=== PATIENT | female | born 1975 | race Caucasian/White ===

== ENCOUNTER → 2016-05-14 | Outpatient (CLI) | payer BC, OTHER ==
--- NOTE | 2016-05-14 12:14 | REP ---
Clinical: Abnormal uterine bleeding . Technique: Transabdominal pelvic ultrasound followed by transvaginal examination for better evaluation of the endometrium and adnexa with color Doppler evaluation of the ovaries. Findings: Bladder is unremarkable and measures 7.0 x 5.6 x 6.4 cm . Normal anteverted uterus measures 8.6 x 3.9 x 5.1 cm . The endometrial complex measures 3.6 mm thickness. No significant discrete uterine or endometrial abnormalities are appreciated. Few small Nabothian cysts are identified in the lower uterine segment. Myometrial calcification is likely chronic and nonsignificant. Trace endocervical fluid. Bilateral ovaries are normal in appearance and vascularity without evidence for torsion. Right ovary measures 5.2 x 2.2 x 3.2 cm with 3.1 cm cyst ; R I = 0.64. Left ovary measures 2.9 x 1.0 x 1.4 cm ; R I = unobtainable . No pelvic fluid or adnexal mass lesion. Impression: 1. Relatively normal anteverted uterus with subtle chronic changes including small myometrial calcification, Nabothian cysts, and sliver of endocervical fluid. No discrete uterine abnormality otherwise noted. 2. 3.1 cm right ovarian cyst likely physiologic. Consider follow-up examination in 4-6 weeks to evaluate for resolution. Signed by Denis Holbrook MD 05/14/2016 12:05 P
== END ==
LOC: M SMT 11:01
PROVIDERS: ATTEND Advanced Practice Midwife
DX: N92.6 Irregular menstruation, unspecified (principal); N85.8 Other specified noninflammatory disorders of uterus

== ENCOUNTER → 2017-08-14 | Outpatient (REF) | payer BC, OTHER | LOC: M LAB REF 18:17 | DX: Z12.4 Encounter for screening for malignant neoplasm of cervix (principal); R87.618 Other abnormal cytological findings on specimens from cervix uteri | CPT/HCPCS: G0123 ==

== ENCOUNTER → 2017-09-09 | Outpatient (CLI) | payer BC | LOC: M WHC 06:42 | DX: Z12.31 Encounter for screening mammogram for malignant neoplasm of breast (principal) ==

== ENCOUNTER → 2018-06-08 | Outpatient (CLI) | payer BC, OTHER ==
[2018-06-08 17:28] LABS: FREE T4 0.99 NG/DL (0.76-1.46); THYROID STIMULATING HORMONE 0.716 uIU/ML (0.358-3.740)
[2018-06-08 17:30] LABS: PROLACTIN 10.4 NG/ML
[2018-06-08 17:56] LABS: HEMATOCRIT 46.8 % (36.0-47.0); HEMOGLOBIN 14.5 g/dl (12.0-15.5); MEAN CORPUSCULAR HEMOGLOBIN 27.7 pg (27.0-33.0); MEAN CORPUSCULAR VOLUME 89.3 fl (80.0-96.0); PLATELET COUNT, AUTOMATED 255 10^3/uL (150-450); RED BLOOD COUNT 5.24 10^6/uL (4.00-5.40); WHITE BLOOD COUNT 5.7 10^3/uL (4.0-10.0)
[2018-06-12 08:10] LABS: DEHYDROEPIANDROSTERONE UNCONJ 117 ng/dL (31-701); TESTOSTERONE FREE (DIRECT) 0.7 pg/mL (0.0-4.2)
== END ==
LOC: M SMT 14:47
PROVIDERS: ATTEND Advanced Practice Midwife
DX: L63.9 Alopecia areata, unspecified (principal)

== ENCOUNTER → 2018-09-10 | Outpatient (CLI) | payer BC ==
--- NOTE | 2018-09-10 09:04 | REPMRS ---
Patient History The patient states she had a clinical breast exam in 08/2018. No known family history of cancer. Taking unspecified hormones for 6 years. Digital Woman Screen Mammo: September 10, 2018 - Exam #: [id number] Bilateral CC and MLO view(s) were taken. Technologist: Lashonda Boss, Technologist Prior study comparison: September 09, 2017, bilateral digital woman screen mammo performed at [facility]. November 05, 2013, digital woman screen mammo performed at [facility]. FINDINGS: The breast tissue is heterogeneously dense. This may lower the sensitivity of mammography. There are two nodular opacities seen on 3-D tomography imaging in the upper outer quadrant of the right breast which merit further evaluation. These appear to be well circumscribed and measures 16 and 8 mm in greatest diameter respectively. There is a moderate amount of heterogeneously dense fibroglandular tissue which is fairly symmetric. There is no other interval development of dominant mass, architectural distortion, or clustered microcalcification typical of malignancy. There has been no other change in the appearance of the mammogram from the prior studies. 3-D tomosynthesis shows no additional findings. Assessment: BI-RADS/ACR category 0 mammogram, Incomplete: Need additional imaging evaluation and/or prior mammograms for comparison. Recommendation Ultrasound and special view mammogram of the right breast. This patient's Lifetime Breast Cancer RIsk is estimated at 9.8 %. This mammogram was interpreted with the aid of an FDA-approved computer-aided dectection system. Electronically Signed By: Chang Meza MD 09/10/18 0903
== END ==
LOC: M WHC 06:32
PROVIDERS: ATTEND Advanced Practice Midwife
DX: Z12.31 Encounter for screening mammogram for malignant neoplasm of breast (principal); R92.8 Other abnormal and inconclusive findings on diagnostic imaging of breast

== ENCOUNTER → 2018-09-15 | Outpatient (CLI) | payer BC ==
--- NOTE | 2018-09-16 11:51 | REP ---
ULTRASOUND RIGHT BREAST: Ultrasound right breast performed and correlated with a recent mammogram 09/10/2018, which showed two oval well-circumscribed nodules at 12-o'clock position in the right breast. One was slightly greater than 1 cm in diameter and one slightly less than 1 cm in diameter. Ultrasound at the 10-o'clock to 12-o'clock region, demonstrates two adjacent anechoic benign cysts measuring 1.2 x 1.2 x 1.0 cm and 7 x 6 x 6 mm. Corresponding to the mammographic abnormality. These are benign. IMPRESSION: ACR 2 benign. The two adjacent well-circumscribed nodules in the upper right breast correspond to simple cysts by ultrasound and are benign. Recommend followup mammogram in 1 year. Electronically Signed by Jeff Love MD 09/16/2018 04:37 P
== END ==
LOC: M RAD 16:48
PROVIDERS: ATTEND Advanced Practice Midwife
DX: N60.01 Solitary cyst of right breast (principal)

== ENCOUNTER → 2018-10-21 | Outpatient (REF) | payer OTHER | LOC: M LAB REF 18:02 | PROVIDERS: ATTEND Advanced Practice Midwife | DX: Z12.4 Encounter for screening for malignant neoplasm of cervix (principal) ==

== ENCOUNTER → 2019-01-28 | Outpatient (CLI) | payer BC, OTHER ==
[2019-01-28 13:30] LABS: HEMATOCRIT 50.7 % (36.0-47.0); HEMOGLOBIN 15.9 g/dl (12.0-15.5); MEAN CORPUSCULAR HEMOGLOBIN 28.6 pg (27.0-33.0); MEAN CORPUSCULAR HGB CONC 31.4 g/dl (32.0-36.5); MEAN CORPUSCULAR VOLUME 91.2 fl (80.0-96.0); PLATELET COUNT, AUTOMATED 299 10^3/uL (150-450); RED BLOOD COUNT 5.56 10^6/uL (4.00-5.40); WHITE BLOOD COUNT 11.3 10^3/uL (4.0-10.0)
[2019-01-28 13:32] LABS: BLOOD UREA NITROGEN 9 MG/DL (7-18); CALCIUM LEVEL 9.1 MG/DL (8.5-10.1); CARBON DIOXIDE LEVEL 28 MEQ/L (21-32); CHLORIDE LEVEL 107 MEQ/L (98-107); CREATININE FOR GFR 0.82 MG/DL (0.55-1.30); GLOMERULAR FILTRATION RATE > 60.0 (>58); GLUCOSE, FASTING 83 MG/DL (70-100); POTASSIUM SERUM 4.4 MEQ/L (3.5-5.1); SODIUM LEVEL 140 MEQ/L (136-145)
== END ==
LOC: M SMT 08:49
PROVIDERS: ATTEND Plastic Surgery Surgery of the Hand
DX: D49.2 Neoplasm of unspecified behavior of bone, soft tissue, and skin (principal)

== ENCOUNTER 2019-02-18 06:06 | Day surgery (SDC) | payer BC, OTHER ==
[~2019-02-18] VITALS: Ht 162.6 cm; Wt 83.6 kg
[~2019-02-18 06:06] MED LIST: CVS-161 PO; LIDOCAINE 1% MDV 20ML VIAL SQ PRN; LR 1,000 ML IV ONE; MIRE1IUD IU; MULTCAP PO; SERT-138 PO; VITA-157 PO; ceFAZolin SOD 1 GM in D5W MINI-BAG PLUS 50 ML IV SCH
[2019-02-18] MEDS ORDERED: dexameTHASONE 4 MG/ML 1ML VIAL (J1100) As Ordered ONE (07:11)
[2019-02-18] MEDS ORDERED: PROPOFOL 200 MG/20 ML VIAL As Ordered ONE ×2 (07:11→08:29)
[2019-02-18] MEDS ORDERED: fentaNYL 250 MCG/5 ML INJECTION (J3010) As Ordered ONE (07:11)
[2019-02-18] MEDS ORDERED: ROCURONIUM BROMIDE 50 MG/5 ML VIAL As Ordered ONE (07:11)
[2019-02-18] MEDS ORDERED: ONDANSETRON 4MG/2ML VIAL (J2405) As Ordered ONE (07:11)
[2019-02-18] MEDS ORDERED: LIDOCAINE 2% INJ 100 MG/5 ML SDV (FOR ANES.) As Ordered ONE (07:11)
[2019-02-18] MEDS ORDERED: MIDAZOLAM INJ 2 MG/2 ML VIAL (J2250) As Ordered ONE (07:11)
[2019-02-18] MEDS ORDERED: LIDOCAINE W/EPINEPHRINE 1% 20ML VIAL As Ordered ONE (07:18)
[2019-02-18] MEDS ORDERED: ACETAMINOPHEN 1000MG 100ML IV BTL (OFIRMEV) (J0131 PER 10MG) As Ordered ONE (07:40)
[2019-02-18] MEDS ORDERED: BACITRACIN PWD 50,000 UNITS VIAL As Ordered ONE (08:04)
[2019-02-18] MEDS ORDERED: ePHEDrine SULFATE 25 MG/5 ML(5MG/ML) SYRINGE As Ordered ONE (08:29)
--- NOTE | 2019-02-18 08:40 | POST-OPPD ---
Postoperative Procedure Note Date Of Procedure: Feb 18, 2019 PREOPERATIVE DIAGNOSIS: Right upper back mass POSTOPERATIVE DIAGNOSIS: same FINDINGS: Right upper back mass 6x4.5 cm. PROCEDURE: Excision right upper back mass SURGEON: Dr Mosher PERSONAL INJURY SPECIALIST: Dr Cintron ANESTHESIA: local with sedation SPECIMENS: Right upper back mass ESTIMATED BLOOD LOSS: 5 cc REPLACED: none DRAINS: 10 mm round drain COMPLICATIONS: none POSTOPERATIVE CONDITION: stable GLORIA MOSHER DO Feb 18, 2019 08:40
[2019-02-18] MEDS ORDERED: TYLETAB14 PO (08:45)
[2019-02-18 09:15] VITALS: BP 144/87
--- NOTE | 2019-02-20 14:27 | RO ---
DATE OF PROCEDURE: 02/18/2019 PREPROCEDURE DIAGNOSIS: Right upper back mass. POSTPROCEDURE DIAGNOSIS: Right upper back mass. PROCEDURE: Excision right upper back mass. SURGEON: Dr. Sriia Guillen HAIR SPRING CUTTER: Dr. Cintron. ANESTHESIA: Local with sedation. SPECIMEN SENT: Right upper back mass. ESTIMATED BLOOD LOSS: 5 mL. FLUID REPLACEMENT: No replacements needed. DRAIN: 10 mm round drain. POSTOP CONDITION: Stable. FINDINGS: Mass right upper back 6 x 4.5 cm in diameter. This is a 43-year-old female who had a slow-growing mass on the right upper back. It is a round and oblong. It is 4.5 x 6 cm palpable. It does not feel fixed. Patient is scheduled to have it excised. Risks, benefits, and alternatives discussed with the patient in detail. She has agreed to proceed. DESCRIPTION OF PROCEDURE: On the day of surgery, informed consent was confirmed. She was brought into the operating room and placed in a semi-lateral position on the left side. Patient positioned herself and slight sedation was given to the patient. She was prepped and draped in the usual sterile fashion. We started our procedure with infiltrating local anesthetic in the area of 1% lidocaine with epinephrine. After the numbing affect of lidocaine was taken placed, the curvilinear incision was made through the most prominent portion of the mass. Sharp dissection was carried out until we identified the lipomatous mass. Then careful dissection was around the mass to get it wall excised in all entirety. Hemostasis obtained using electrocautery. The mass came out as one. The wound was irrigated with bacitracin irrigant solution. Hemostasis was checked and it was okay. No bleeding. Then we made a separate stab incision inferior to the opening and the drain was introduced into the cavity. The wound was closed in layers with interrupted #3-0 Vicryl and #3-0 Monocryl sutures as well as a #4-0 Monocryl suture and drain suture in place as well. Steri-Strips and a pressure dressing were applied. Patient tolerated the procedure well without any difficulty and was transferred to the recovery room in stable condition.
== END 2019-02-18 09:20 | disposition home or self-care (01) ==
LOC: M SDC 06:06
PROVIDERS: ATTEND Plastic Surgery Surgery of the Hand
DX: D17.1 Benign lipomatous neoplasm of skin and subcutaneous tissue of trunk (principal); F41.9 Anxiety disorder, unspecified; F32.9 Major depressive disorder, single episode, unspecified; Z87.891 Personal history of nicotine dependence; Z97.5 Presence of (intrauterine) contraceptive device
CPT/HCPCS: 21931; 81025; 88305; J0131; J0690; J1100; J2250; J2405; J3010

== ENCOUNTER → 2019-09-10 | Outpatient (REF) | payer OTHER ==
[~2019-09-10] MED LIST changes: -LIDOCAINE 1% MDV 20ML VIAL SQ PRN; -LR 1,000 ML IV ONE; +TYLETAB14 PO; -ceFAZolin SOD 1 GM in D5W MINI-BAG PLUS 50 ML IV SCH
[2019-09-10 11:22] LABS: FREE T4 1.11 NG/DL (0.76-1.46); THYROID STIMULATING HORMONE 0.477 uIU/ML (0.358-3.740)
== END ==
LOC: M PLALAB 09:20
PROVIDERS: ATTEND Advanced Practice Midwife
DX: L65.9 Nonscarring hair loss, unspecified (principal)

== ENCOUNTER → 2019-10-26 | Outpatient (CLI) | payer BC ==
--- NOTE | 2019-11-19 06:57 | REPMRS ---
Patient History The patient states she had a clinical breast exam in 08/2019. No known family history of cancer. Took unspecified hormones for 6 years. Digital Woman Screen Mammo: October 26, 2019 - Exam #: [id number] Bilateral CC and MLO view(s) were taken. Technologist: Lashonda Boss, Technologist Prior study comparison: September 10, 2018, bilateral digital woman screen mammo performed at [facility]. September 09, 2017, bilateral digital woman screen mammo performed at [facility]. November 05, 2013, digital woman screen mammo performed at [facility]. FINDINGS: The breast tissue is heterogeneously dense. This may lower the sensitivity of mammography. There is a moderate amount of heterogeneously dense fibroglandular tissue which is fairly symmetric. There is no interval development of dominant mass, architectural distortion, or grouped microcalcification typical of malignancy. There has been no change in the appearance of the mammogram from the prior studies. 3-D tomosynthesis shows no additional findings. Report was delayed due to a malware attack on this facility. Assessment: BI-RADS/ACR category 1 mammogram. Negative Mammogram. Recommendation Routine screening mammogram of both breasts in 1 year (for women over age 40). This patient's Lifetime Breast Cancer RIsk is estimated at 9.7 %. This mammogram was interpreted with the aid of an FDA-approved computer-aided dectection system. Electronically Signed By: Chang Meza MD 11/19/19 0656
== END ==
LOC: M WHC 06:52
PROVIDERS: ATTEND Advanced Practice Midwife
DX: Z12.31 Encounter for screening mammogram for malignant neoplasm of breast (principal)

== ENCOUNTER → 2020-08-11 | Outpatient (REF) | payer BC, OTHER ==
[~2020-08-11] MED LIST changes: -VITA-157 PO; +VITAE40CA PO
[2020-08-11 11:12] LABS: BASO % 0.5 % (0.0-1.0); EOS # 0.1 10^3/uL (0.0-0.5); EOS % 1.5 % (0.0-3.0); HEMATOCRIT 47.2 % (36.0-47.0); HEMOGLOBIN 14.3 g/dl (12.0-15.5); LYMPH # 2.4 10^3/uL (1.5-5.0); LYMPH % 32.4 % (24.0-44.0); MEAN CORPUSCULAR HEMOGLOBIN 26.8 pg (27.0-33.0); MEAN CORPUSCULAR HGB CONC 30.3 g/dl (32.0-36.5); MEAN CORPUSCULAR VOLUME 88.4 fl (80.0-96.0); MONO # 0.7 10^3/uL (0.0-0.8); MONO % 8.6 % (2.0-8.0); NEUTROPHILS # 4.3 10^3/uL (1.5-8.5); NEUTROPHILS % 56.5 % (36.0-66.0); PLATELET COUNT, AUTOMATED 330 10^3/uL (150-450); RED BLOOD COUNT 5.34 10^6/uL (4.00-5.40); WHITE BLOOD COUNT 7.5 10^3/uL (4.0-10.0)
[2020-08-11 11:41] LABS: ALBUMIN 3.6 GM/DL (3.2-5.2); ALT/SGPT 31 U/L (12-78); BILIRUBIN,TOTAL 0.3 MG/DL (0.2-1.0); BLOOD UREA NITROGEN 10 MG/DL (7-18); CALCIUM LEVEL 9.4 MG/DL (8.5-10.1); CARBON DIOXIDE LEVEL 29 MEQ/L (21-32); CHLORIDE LEVEL 112 MEQ/L (98-107); CHOLESTEROL LEVEL 269 MG/DL (<200); CHOLESTEROL RISK RATIO 4.719 (<5); CREATININE FOR GFR 0.94 MG/DL (0.55-1.30); FREE T4 1.01 NG/DL (0.76-1.46); GLOMERULAR FILTRATION RATE > 60.0 (>58); GLUCOSE, FASTING 88 MG/DL (70-100); HDL CHOLESTEROL 57 MG/DL (>40); LDL CHOLESTEROL 194 MG/DL (<100); NON-HDL-C 212 MG/DL; NT-PRO BNP 138 PG/ML (<125); POTASSIUM SERUM 4.4 MEQ/L (3.5-5.1); SODIUM LEVEL 144 MEQ/L (136-145); TOTAL PROTEIN 6.9 GM/DL (6.4-8.2); TRIGLYCERIDES LEVEL 90 MG/DL (<150); TROPONIN I < 0.02 NG/ML (< 0.10)
== END ==
LOC: M PLALAB 09:52
PROVIDERS: ATTEND Family Medicine
DX: Z13.220 Encounter for screening for lipoid disorders (principal); Z13.29 Encounter for screening for other suspected endocrine disorder; Z13.0 Encounter for screening for diseases of the blood and blood-forming organs and certain disorders involving the immune mechanism; I10 Essential (primary) hypertension

== ENCOUNTER → 2020-09-20 | Outpatient (REF) | LOC: M LABSMTC 11:54 | PROVIDERS: ATTEND Pediatrics | DX: Z20.822 Contact with and (suspected) exposure to COVID-19 (principal) ==

== ENCOUNTER → 2020-09-27 | Outpatient (REF) | payer OTHER, BC ==
[2020-09-27 10:32] LABS: BASO # 0.1 10^3/uL (0.0-0.2); BASO % 0.8 % (0.0-1.0); EOS # 0.7 10^3/uL (0.0-0.5); EOS % 7.1 % (0.0-3.0); HEMATOCRIT 44.2 % (36.0-47.0); HEMOGLOBIN 13.6 g/dl (12.0-15.5); LYMPH # 1.9 10^3/uL (1.5-5.0); MEAN CORPUSCULAR HEMOGLOBIN 26.3 pg (27.0-33.0); MEAN CORPUSCULAR HGB CONC 30.8 g/dl (32.0-36.5); MEAN CORPUSCULAR VOLUME 85.3 fl (80.0-96.0); MONO # 1.3 10^3/uL (0.0-0.8); MONO % 13.5 % (2.0-8.0); NEUTROPHILS # 5.4 10^3/uL (1.5-8.5); PLATELET COUNT, AUTOMATED 492 10^3/uL (150-450); RED BLOOD COUNT 5.18 10^6/uL (4.00-5.40); WHITE BLOOD COUNT 9.6 10^3/uL (4.0-10.0)
[2020-09-27 11:14] LABS: ALBUMIN 2.8 GM/DL (3.2-5.2); ALT/SGPT 260 U/L (12-78); BILIRUBIN,TOTAL 0.8 MG/DL (0.2-1.0); BLOOD UREA NITROGEN 8 MG/DL (7-18); CALCIUM LEVEL 8.8 MG/DL (8.5-10.1); CARBON DIOXIDE LEVEL 28 MEQ/L (21-32); CHLORIDE LEVEL 106 MEQ/L (98-107); GLOMERULAR FILTRATION RATE > 60.0 (>58); GLUCOSE, FASTING 102 MG/DL (70-100); SODIUM LEVEL 139 MEQ/L (136-145); TOTAL PROTEIN 6.6 GM/DL (6.4-8.2)
== END ==
LOC: M PLALAB 09:52
PROVIDERS: ATTEND Physician Assistant
DX: I10 Essential (primary) hypertension (principal)

== ENCOUNTER → 2020-10-13 | Outpatient (CLI) | payer OTHER, BC ==
[2020-10-13 10:58] LABS: BASO # 0.1 10^3/uL (0.0-0.2); BASO % 0.7 % (0.0-1.0); EOS # 0.4 10^3/uL (0.0-0.5); HEMATOCRIT 44.7 % (36.0-47.0); HEMOGLOBIN 14.2 g/dl (12.0-15.5); LYMPH # 2.3 10^3/uL (1.5-5.0); LYMPH % 30.9 % (24.0-44.0); MEAN CORPUSCULAR HEMOGLOBIN 26.9 pg (27.0-33.0); MEAN CORPUSCULAR HGB CONC 31.8 g/dl (32.0-36.5); MEAN CORPUSCULAR VOLUME 84.8 fl (80.0-96.0); MONO # 0.7 10^3/uL (0.0-0.8); MONO % 9.3 % (2.0-8.0); NEUTROPHILS % 53.3 % (36.0-66.0); PLATELET COUNT, AUTOMATED 356 10^3/uL (150-450); RED BLOOD COUNT 5.27 10^6/uL (4.00-5.40); WHITE BLOOD COUNT 7.5 10^3/uL (4.0-10.0)
[2020-10-13 11:37] LABS: ALBUMIN 3.5 GM/DL (3.2-5.2); ALT/SGPT 39 U/L (12-78); BILIRUBIN,DIRECT 0.1 MG/DL (0.0-0.2); BILIRUBIN,TOTAL 0.4 MG/DL (0.2-1.0); BLOOD UREA NITROGEN 10 MG/DL (7-18); CALCIUM LEVEL 9.2 MG/DL (8.5-10.1); CARBON DIOXIDE LEVEL 26 MEQ/L (21-32); CHLORIDE LEVEL 113 MEQ/L (98-107); CREATININE FOR GFR 0.83 MG/DL (0.55-1.30); GLOMERULAR FILTRATION RATE > 60.0 (>58); GLUCOSE, FASTING 79 MG/DL (70-100); LIPASE 115 U/L (73-393); POTASSIUM SERUM 4.2 MEQ/L (3.5-5.1); SODIUM LEVEL 136 MEQ/L (136-145); TOTAL PROTEIN 7.2 GM/DL (6.4-8.2)
[2020-10-13 11:51] LABS: HEPATITIS B SURFACE ANTIGEN NEGATIVE (NEGATIVE)
[2020-10-13 12:17] LABS: HEPATITIS C VIRUS ABY INDEX 0.3 INDEX (<0.8)
[2020-10-13 12:18] LABS: HEPATITIS B CORE ANTIBODY IGM NEGATIVE (NEGATIVE)
[2020-10-13 12:20] LABS: HEPATITIS A ANTIBODY IGM NEGATIVE (NEGATIVE)
== END ==
LOC: M PLALAB 07:05
PROVIDERS: ATTEND Physician Assistant
DX: R74.8 Abnormal levels of other serum enzymes (principal); I10 Essential (primary) hypertension

== ENCOUNTER → 2020-10-26 | Outpatient (CLI) | payer BC ==
--- NOTE | 2020-10-26 08:21 | REPMRS ---
Patient History The patient states she had a clinical breast exam in September 2020. No known family history of cancer. Took unspecified hormones for 6 years. No breast complaints today Patient signed the MRS sheet No covid vaccine Priors on PACS Patient Identification Verified Patient denied Digital Woman Screen Mammo: October 26, 2020 - Exam #: [id number] Bilateral CC and MLO view(s) were taken. Technologist: Ashley Machado, Technologist Prior study comparison: October 26, 2019, bilateral digital woman screen mammo performed at [facility]. September 10, 2018, bilateral digital woman screen mammo performed at [facility]. FINDINGS: There are scattered fibroglandular densities. Screening. Digital screening (2D) mammography was performed bilaterally in the CC and MLO projections. Additionally, breast tomosynthesis (3D mammography) was performed bilaterally in the CC and MLO projections. Todays exam was compared to the prior exam/exams. By history, the patient has no complaints of a palpable breast abnormality or other significant breast complaints. The breasts are unchanged in size and shape. There are no terry-soft tissue densities or spiculated masses. There is no internal architectural distortion. There are no suspicious terry-calcific clusters. Skin thickening or nipple retraction is not present. IMPRESSION: BI-RADS Category 2- Benign Findings. There is no evidence of malignant alteration of the breasts. Followup examination recommended in one year. The Volpara volumetric breast density category is B, there are scattered areas of fibroglandular densities. This mammogram was read with the assistance of [facility],an FDA approved computer aided detection system for mammography. The lifetime Tyrer-Cuzick score is 9.6 % Negative x-ray reports should not delay surgical consultation if a dominant or clinically suspicious mass is present. Not all breast cancers can be identified by mammography. Therefore, we recommend that you continue to perform regular breast self-examination and physical examination and then promptly contact your physician of any concerns or changes. Adenosis and dense breasts may obscure an underlying neoplasm. Assessment: BI-RADS/ACR category 2 mammogram. Benign Findings. Recommendation Routine screening mammogram of both breasts in 1 year. Electronically Signed By: Norman Grant DO 10/26/20 0834
== END ==
LOC: M WHC 06:57
PROVIDERS: ATTEND Advanced Practice Midwife
DX: Z12.31 Encounter for screening mammogram for malignant neoplasm of breast (principal)

== ENCOUNTER → 2020-11-15 | Outpatient (REF) | payer BC, OTHER | LOC: M SFHCWAGY 13:15 | PROVIDERS: ATTEND Advanced Practice Midwife | DX: Z12.4 Encounter for screening for malignant neoplasm of cervix (principal); R87.618 Other abnormal cytological findings on specimens from cervix uteri | CPT/HCPCS: 87624; G0123 ==

== ENCOUNTER → 2021-09-05 | Outpatient (CLI) | payer BC, OTHER ==
[2021-09-05 10:22] LABS: BASO % 0.5 % (0.0-1.0); EOS # 0.1 10^3/uL (0.0-0.5); EOS % 1.5 % (0.0-3.0); HEMATOCRIT 44.4 % (36.0-47.0); LYMPH # 2.1 10^3/uL (1.5-5.0); LYMPH % 24.4 % (24.0-44.0); MEAN CORPUSCULAR HEMOGLOBIN 28.6 pg (27.0-33.0); MEAN CORPUSCULAR HGB CONC 31.5 g/dl (32.0-36.5); MEAN CORPUSCULAR VOLUME 90.6 fl (80.0-96.0); MONO # 0.7 10^3/uL (0.0-0.8); MONO % 7.6 % (2.0-8.0); NEUTROPHILS # 5.7 10^3/uL (1.5-8.5); NEUTROPHILS % 65.7 % (36.0-66.0); PLATELET COUNT, AUTOMATED 302 10^3/uL (150-450); WHITE BLOOD COUNT 8.7 10^3/uL (4.0-10.0)
[2021-09-05 11:19] LABS: ALBUMIN 3.5 GM/DL (3.2-5.2); ALT/SGPT 33 U/L (12-78); BILIRUBIN,TOTAL 0.3 MG/DL (0.2-1.0); BLOOD UREA NITROGEN 10 MG/DL (7-18); CALCIUM LEVEL 9.2 MG/DL (8.5-10.1); CARBON DIOXIDE LEVEL 27 MEQ/L (21-32); CHLORIDE LEVEL 112 MEQ/L (98-107); CHOLESTEROL LEVEL 171 MG/DL (<200); CHOLESTEROL RISK RATIO 2.803 (<5); CREATININE FOR GFR 0.82 MG/DL (0.55-1.30); FREE T4 0.99 NG/DL (0.76-1.46); GLOMERULAR FILTRATION RATE > 60.0 (>58); GLUCOSE, FASTING 86 MG/DL (70-100); HDL CHOLESTEROL 61 MG/DL (>40); LDL CHOLESTEROL 95 MG/DL (<100); NON-HDL-C 110 MG/DL; POTASSIUM SERUM 4.4 MEQ/L (3.5-5.1); SODIUM LEVEL 144 MEQ/L (136-145); TOTAL PROTEIN 6.9 GM/DL (6.4-8.2); TRIGLYCERIDES LEVEL 75 MG/DL (<150)
== END ==
LOC: M PLALAB 07:23
PROVIDERS: ATTEND Family Medicine
DX: I10 Essential (primary) hypertension (principal); E78.00 Pure hypercholesterolemia, unspecified

== ENCOUNTER → 2021-11-27 | Outpatient (CLI) | payer BC, OTHER | LOC: M WHC 09:15 | PROVIDERS: ATTEND Obstetrics & Gynecology | DX: Z12.31 Encounter for screening mammogram for malignant neoplasm of breast (principal) ==

== ENCOUNTER → 2021-11-28 | Outpatient (REF) | payer OTHER | LOC: M PLALAB 09:26 | PROVIDERS: ATTEND Obstetrics & Gynecology | DX: Z12.4 Encounter for screening for malignant neoplasm of cervix (principal); R87.610 Atypical squamous cells of undetermined significance on cytologic smear of cervix (ASC-US); N76.0 Acute vaginitis | CPT/HCPCS: 87624; G0123 ==

== ENCOUNTER → 2022-02-01 | Outpatient (REF) | payer OTHER ==
[2022-02-01 18:49] LABS: FREE T4 0.92 NG/DL (0.76-1.46); THYROID STIMULATING HORMONE 1.03 uIU/ML (0.358-3.740)
[2022-02-01 19:20] LABS: PROLACTIN 12.1 NG/ML
[2022-02-01 19:28] LABS: FOLLICLE STIMULATING HORMONE 4.2 mIU/mL; LUTEINIZING HORMONE 4.1 mIU/mL
== END ==
LOC: M PLALAB 17:09
PROVIDERS: ATTEND Obstetrics & Gynecology
DX: N91.1 Secondary amenorrhea (principal)

== ENCOUNTER → 2022-09-03 | Outpatient (CLI) | payer OTHER, BC ==
[2022-09-03 11:06] LABS: BASO # 0.1 10^3/uL (0.0-0.2); BASO % 0.6 % (0.0-1.0); EOS # 0.1 10^3/uL (0.0-0.5); EOS % 1.1 % (0.0-3.0); HEMATOCRIT 47.6 % (36.0-47.0); HEMOGLOBIN 14.9 g/dl (12.0-15.5); LYMPH # 1.8 10^3/uL (1.5-5.0); LYMPH % 22.9 % (24.0-44.0); MEAN CORPUSCULAR HEMOGLOBIN 27.2 pg (27.0-33.0); MEAN CORPUSCULAR HGB CONC 31.3 g/dl (32.0-36.5); MONO # 0.7 10^3/uL (0.0-0.8); NEUTROPHILS # 5.2 10^3/uL (1.5-8.5); NEUTROPHILS % 65.9 % (36.0-66.0); PLATELET COUNT, AUTOMATED 295 10^3/uL (150-450); RED BLOOD COUNT 5.47 10^6/uL (4.00-5.40); WHITE BLOOD COUNT 7.9 10^3/uL (4.0-10.0)
[2022-09-03 11:07] LABS: ALBUMIN 3.7 G/DL (3.2-5.2); ALKALINE PHOSPHATASE 99 U/L (46-116); ALT/SGPT 30 U/L (7.0-40); AST/SGOT 22 U/L (<34); BILIRUBIN,TOTAL 0.6 MG/DL (0.3-1.2); BLOOD UREA NITROGEN 10 MG/DL (9-23); CALCIUM LEVEL 8.9 MG/DL (8.5-10.1); CARBON DIOXIDE LEVEL 27 MMOL/L (20-31); CHLORIDE LEVEL 109 MMOL/L (98-107); CHOLESTEROL LEVEL 162 MG/DL (<200); CHOLESTEROL RISK RATIO 2.53 (<5); CREATININE FOR GFR 0.77 MG/DL (0.55-1.30); GLOMERULAR FILTRATION RATE > 60.0 (>58); GLUCOSE, FASTING 92 MG/DL (60-100); HDL CHOLESTEROL 63.8 MG/DL (>40); NON-HDL-C 98.2 MG/DL; POTASSIUM SERUM 4.2 MMOL/L (3.5-5.1); SODIUM LEVEL 141 MMOL/L (136-145); TOTAL PROTEIN 6.4 G/DL (5.7-8.2); TRIGLYCERIDES LEVEL 96 MG/DL (<150)
[2022-09-03 11:11] LABS: FREE T4 1.19 NG/DL (0.89-1.76); THYROID STIMULATING HORMONE 1.605 uIU/ML (0.55-4.78)
== END ==
LOC: M PLALAB 07:28
PROVIDERS: ATTEND Family Medicine
DX: I10 Essential (primary) hypertension (principal); E78.00 Pure hypercholesterolemia, unspecified; Z13.29 Encounter for screening for other suspected endocrine disorder

== ENCOUNTER → 2022-11-28 | Outpatient (CLI) | payer BC, OTHER | LOC: M WHC 07:07 | PROVIDERS: ATTEND Obstetrics & Gynecology | DX: Z12.31 Encounter for screening mammogram for malignant neoplasm of breast (principal) ==

== ENCOUNTER → 2022-12-03 | Outpatient (CLI) | payer BC, OTHER | LOC: M WHC 10:09 | PROVIDERS: ATTEND Obstetrics & Gynecology | DX: R92.8 Other abnormal and inconclusive findings on diagnostic imaging of breast (principal) | CPT/HCPCS: 77065; G0279 ==

== ENCOUNTER 2023-01-03 06:40 | Day surgery (SDC) | payer BC, OTHER ==
[~2023-01-03] VITALS: Ht 162.6 cm; Wt 77.8 kg
[~2023-01-03 06:40] MED LIST changes: +ATOR1TAB21 PO; +IRBE300T7 PO; +NS 1,000 ML IV ONE; +VITA400T26 PO
[2023-01-03 08:10] VITALS: BP 111/60; O2SAT 98
== END 2023-01-03 08:14 | disposition home or self-care (01) ==
LOC: M OPP 06:40
PROVIDERS: ATTEND Surgery
DX: Z12.11 Encounter for screening for malignant neoplasm of colon (principal); K64.0 First degree hemorrhoids; K57.30 Diverticulosis of large intestine without perforation or abscess without bleeding; F17.200 Nicotine dependence, unspecified, uncomplicated; Z79.02 Long term (current) use of antithrombotics/antiplatelets; Z79.899 Other long term (current) drug therapy; Z88.8 Allergy status to other drugs, medicaments and biological substances

== ENCOUNTER 2023-06-20 06:08 | Day surgery (SDC) | payer BC ==
[~2023-06-20] VITALS: Ht 162.6 cm; Wt 77.4 kg
[~2023-06-20 06:08] MED LIST changes: +IBUP80TA PO; +IRBE300T25 PO; -IRBE300T7 PO; -NS 1,000 ML IV ONE
[2023-06-20 06:45] LABS: HEMATOCRIT 47.1 % (36.0-47.0); HEMOGLOBIN 14.8 g/dl (12.0-15.5); MEAN CORPUSCULAR HGB CONC 31.4 g/dl (32.0-36.5); MEAN CORPUSCULAR VOLUME 85.9 fl (80.0-96.0); PLATELET COUNT, AUTOMATED 283 10^3/uL (150-450); RED BLOOD COUNT 5.48 10^6/uL (4.00-5.40); WHITE BLOOD COUNT 6.9 10^3/uL (4.0-10.0)
[2023-06-20] MEDS ORDERED: propofoL 200 MG/20 ML VIAL As Ordered ONE (07:12)
[2023-06-20] MEDS ORDERED: ONDANSETRON 4MG 2ML VIAL As Ordered ONE (07:12)
[2023-06-20] MEDS ORDERED: PHENYLephrine 500MCG 5ML (100MCG/ML) SYRINGE As Ordered ONE (07:12)
[2023-06-20] MEDS ORDERED: LIDOCAINE 2% 100MG/5ML SDV (FOR ANES.) As Ordered ONE (07:12)
[2023-06-20] MEDS ORDERED: ePHEDrine SULFATE 25 MG/5 ML(5MG/ML) SYRINGE As Ordered ONE (07:12)
[2023-06-20] MEDS ORDERED: fentaNYL 100 MCG/2 ML INJECTION As Ordered ONE (07:13)
[2023-06-20] MEDS ORDERED: MIDAZOLAM INJ 2MG/2ML VIAL As Ordered ONE (07:13)
[2023-06-20] MEDS ORDERED: dexmedeTOMIDine (4MCG/ML)200MCG/50ML BTL (PRECEDEX) As Ordered ONE (07:15)
[2023-06-20] MEDS: LR 1,000 ML IV SCH (07:26)
[2023-06-20] MEDS ORDERED: KETOROLAC 60MG 2ML VIAL As Ordered ONE (07:45)
[2023-06-20] MEDS ORDERED: LR 1,000 ML IV SCH (08:35)
[2023-06-20] MEDS ORDERED: HYDROMORPHONE HCL 0.5 MG/ 0.5 ML SYRINGE IV PRN (08:35)
[2023-06-20] MEDS ORDERED: fentaNYL 100 MCG/2 ML INJECTION IV PRN (08:35)
[2023-06-20] MEDS ORDERED: oxyCODONE 5MG TAB PO PRN (08:35)
[2023-06-20] MEDS ORDERED: ONDANSETRON 4MG 2ML VIAL IV PRN (08:35)
[2023-06-20 10:09] VITALS: BP 126/64; TEMP 97.1; O2SAT 99
== END 2023-06-20 10:10 | disposition home or self-care (01) ==
LOC: M SDC 06:08
PROVIDERS: ATTEND Obstetrics & Gynecology
DX: N93.9 Abnormal uterine and vaginal bleeding, unspecified (principal); I10 Essential (primary) hypertension; E78.00 Pure hypercholesterolemia, unspecified; Z79.899 Other long term (current) drug therapy; F17.210 Nicotine dependence, cigarettes, uncomplicated; Z88.8 Allergy status to other drugs, medicaments and biological substances
CPT/HCPCS: 36415; 58563; 81025; 85027; 86850; 86900; 86901; 88305; J1100; J1885; J2250; J2371; J2405; J3010

== ENCOUNTER → 2023-12-11 | Outpatient (REF) | payer BC ==
[2023-12-13 13:46] LABS: HPV APTIMA Not Detected (Not Detected)
== END ==
LOC: M PLALAB 09:52
PROVIDERS: ATTEND Obstetrics & Gynecology
DX: Z12.4 Encounter for screening for malignant neoplasm of cervix (principal); R87.610 Atypical squamous cells of undetermined significance on cytologic smear of cervix (ASC-US)
CPT/HCPCS: 87624; G0123

== ENCOUNTER → 2023-12-16 | Outpatient (CLI) | payer BC | LOC: M WHC 07:34 | PROVIDERS: ATTEND Obstetrics & Gynecology | DX: Z12.31 Encounter for screening mammogram for malignant neoplasm of breast (principal) ==

== ENCOUNTER → 2024-03-22 | Outpatient (CLI) | payer BC ==
[2024-03-22 10:27] LABS: BASO % 0.4 % (0.0-1.0); EOS # 0.1 10^3/uL (0.0-0.5); EOS % 1.6 % (0.0-3.0); HEMATOCRIT 49.2 % (36.0-47.0); HEMOGLOBIN 15.8 g/dl (12.0-15.5); LYMPH % 28.5 % (24.0-44.0); MEAN CORPUSCULAR HEMOGLOBIN 28.5 pg (27.0-33.0); MEAN CORPUSCULAR HGB CONC 32.1 g/dl (32.0-36.5); MEAN CORPUSCULAR VOLUME 88.6 fl (80.0-96.0); MONO # 0.6 10^3/uL (0.0-0.8); MONO % 8.2 % (2.0-8.0); NEUTROPHILS # 4.2 10^3/uL (1.5-8.5); NEUTROPHILS % 60.9 % (36.0-66.0); PLATELET COUNT, AUTOMATED 263 10^3/uL (150-450); RED BLOOD COUNT 5.55 10^6/uL (4.00-5.40); WHITE BLOOD COUNT 6.9 10^3/uL (4.0-10.0)
[2024-03-22 10:33] LABS: ALBUMIN 3.5 G/DL (3.2-5.2); ALKALINE PHOSPHATASE 105 U/L (35-104); ALT/SGPT 29 U/L (7.0-40); AST/SGOT 22 U/L (<34); BILIRUBIN,TOTAL 0.5 MG/DL (0.3-1.2); BLOOD UREA NITROGEN 17 MG/DL (9-23); CALCIUM LEVEL 9.5 MG/DL (8.5-10.1); CARBON DIOXIDE LEVEL 28 MMOL/L (20-31); CHLORIDE LEVEL 108 MMOL/L (98-107); CHOLESTEROL LEVEL 210 MG/DL (<200); CHOLESTEROL RISK RATIO 3.44 (<5); CREATININE FOR GFR 0.78 MG/DL (0.55-1.30); GLOMERULAR FILTRATION RATE > 60.0 (>58); GLUCOSE, FASTING 85 MG/DL (60-100); LDL CHOLESTEROL 126.8 MG/DL (<100); POTASSIUM SERUM 4.2 MMOL/L (3.5-5.1); SODIUM LEVEL 142 MMOL/L (136-145); TRIGLYCERIDES LEVEL 111 MG/DL (<150)
[2024-03-22 10:37] LABS: FREE T4 1.26 NG/DL (0.89-1.76); THYROID STIMULATING HORMONE 1.094 uIU/ML (0.55-4.78)
[2024-03-22 11:05] LABS: HEMOGLOBIN A1c 5.1 % (4.0-6.0)
== END ==
LOC: M PLALAB 07:31
PROVIDERS: ATTEND Family Medicine
DX: E78.00 Pure hypercholesterolemia, unspecified (principal); I10 Essential (primary) hypertension; Z13.29 Encounter for screening for other suspected endocrine disorder

== ENCOUNTER → 2024-12-24 | Outpatient (CLI) | payer BC | LOC: M WHC 09:02 | PROVIDERS: ATTEND Obstetrics & Gynecology | DX: Z12.31 Encounter for screening mammogram for malignant neoplasm of breast (principal); R92.323 Mammographic fibroglandular density, bilateral breasts ==